=== PATIENT | male | born 1985 | race African-American/Black ===

== ENCOUNTER 2018-06-28 10:44 | Emergency (ER) | payer SELFPAY ==
[2018-06-28 10:58] VITALS: BP 125/68; PULSE 70; TEMP 99; BMI 23.7
[2018-06-28 11:16] LABS: URINE APPEARANCE CLEAR; URINE BILIRUBIN NEGATIVE (<2.0 mg/dL); URINE COLOR YELLOW; URINE GLUCOSE (UA) NEGATIVE (NEGATIVE); URINE KETONE NEGATIVE (NEGATIVE); URINE LEUK ESTERASE NEGATIVE (NEGATIVE); URINE NITRITE NEGATIVE (NEGATIVE)
[2018-06-28 11:21] LABS: URINE PROTEIN 1+ (NEGATIVE)
[2018-06-28] MEDS ORDERED: AZITHROMYCIN 1 GM PACKET PO ONE (11:28)
[2018-06-28] MEDS ORDERED: AZITHROMYCIN 250 MG TABLET ONE (11:31)
--- NOTE | 2018-06-28 11:32 | PDOC ---
History of Present Illness - General Chief Complaint: Urinary Problem Stated Complaint: UTI Time Seen by Provider: 06/28/18 11:00 History Source: Patient Exam Limitations: No Limitations - History of Present Illness Travel History: No Initial Comments: 06/28/18 11:48 Patient came for evaluation of burning with urination for the past 2 days. Denies drainage, testicular swelling or. Denies lesions or painful masses to his penis or testicles. Has never had sexually transmitted disease. Denies knowledge of partner with symptoms. Timing/Duration: reports: constant, getting worse Quality: reports: mild, burning Pain Radiation: reports: no radiation Activities at Onset: reports: none Aggravating Factors: improves with: None Past History - Travel Traveled outside of the country in the last 30 days: No Close contact w/someone who was outside of country & ill: No - Past Medical History Allergies/Adverse Reactions: Allergies Allergy/AdvReac Type Severity Reaction Status Date / Time shellfish derived Allergy Verified 06/28/18 10:53 Home Medications: Ambulatory Orders Methocarbamol [Robaxin -] 500 mg PO TID #21 tablet 05/18/18 Asthma: Yes COPD: No - Immunization History Immunization Up to Date: No - Suicide/Smoking/Psychosocial Hx Smoking History: Never smoked Have you smoked in the past 12 months: No Number of Cigarettes Smoked Daily: 20 Information on smoking cessation initiated: No 'Breaking Loose' booklet given: 01/17/14 Hx Alcohol Use: No Drug/Substance Use Hx: No Substance Use Type: Alcohol, Marijuana Review of Systems - Review of Systems Able to Perform ROS?: Yes Is the patient limited Jamaican proficient: Yes Constitutional: Yes: Symptoms Reported, See HPI. No: Malaise HEENTM: No: Symptoms Reported : Yes: Symptoms Reported, See HPI, Burning, Dysuria. No: Discharge, Frequency , Flank Pain, Urgency Integumentary: Yes: See HPI. No: Symptoms Reported All Other Systems: Reviewed and Negative *Physical Exam - Vital Signs Last Vital Signs Temp Pulse Resp BP Pulse Ox 99.0 F 70 18 125/68 100 06/28/18 10:54 06/28/18 10:54 06/28/18 10:54 06/28/18 10:54 06/28/18 10:54 - Physical Exam General Appearance: Yes: Nourished, Appropriately Dressed, Apparent Distress HEENT: positive: EOMI, CADEN, TMs Normal Neck: positive: Tender, Supple Respiratory/Chest: positive: Lungs Clear. negative: Chest Tender Gastrointestinal/Abdominal: positive: Soft. negative: Tender Male Genitalia: positive: normal genitalia. negative: discharge, testicular tenderness, testicular mass, epididymus tender Musculoskeletal: positive: Normal Inspection Extremity: positive: Normal Capillary Refill, Normal Inspection. negative: Normal Range of Motion Integumentary: positive: Normal Color, Dry, Ecchymosis, Bruising Neurologic: positive: sorter operator II-XII NML intact, Fully Oriented, Alert, Normal Mood/ Affect, Normal Response, Motor Strength 03/22 ED Treatment Course - ADDITIONAL ORDERS Additional order review: Laboratory Results 06/28/18 11:00 Urine Color Yellow Urine Appearance Clear Urine pH 6.0 Ur Specific [place] 1.026 Urine Protein 1+ H Urine Glucose (UA) Negative Urine Ketones Negative Urine Blood Negative Urine Nitrite Negative Urine Bilirubin Negative Urine Urobilinogen 2.0 Ur Leukocyte Esterase Negative Progress Note - Progress Note Progress Note: Possible STD, treated with 250 mg of Rocephin IM for gonorrhea, and 1 g of by mouth Zithromax for chlamydia with no reaction after 30 minutes observation. Patient understands will need to call in 3-7 days for reports of syphilis, gonorrhea and chlamydia testing and follow-up with PMD as well as all contact sexual contact if any positive results obtained. *DC/Admit/Observation/Transfer Diagnosis at time of Disposition: Dysuria - Discharge Dispostion Disposition: HOME Condition at time of disposition: Stable Decision to Admit order: No - Referrals - Patient Instructions Printed Discharge Instructions: DI for Dysuria -- Adult Additional Instructions: You been treated today with azithromycin 1 g by mouth for treatment of presumed chlamydia You have been treated with Rocephin 250 mg injection for treatment of presumned gonorrhea The syphilis test, gonorrhea and chlamydia testing will not be completed for the next few days. You may call [phone] and leave message for return phone call with lab results. Be sure to be clear with your name, birthdate, and phone number Always use condoms with the partners Followup with [facility] or PMD in one week for reevaluation and retesting. - Post Discharge Activity
[2018-06-28 11:35] LABS: URINE MUCUS RARE
== END 2018-06-28 12:25 | disposition home or self-care (01) ==
LOC: JER 10:44 → JERFT 10:44
DX: R30.0 Dysuria (principal); J45.909 Unspecified asthma, uncomplicated
CPT/HCPCS: 36415; 81003; 81015; 86593; 87491; 87591; 99281-25

== ENCOUNTER 2018-10-12 13:29 | Emergency (ER) | payer SELFPAY ==
[2018-10-12 13:40] VITALS: BP 146/86; PULSE 80; TEMP 98.2; BMI 24.6
[2018-10-12] MEDS ORDERED: IBUPROFEN 400 MG TABLET (FP) PO ONE ×2 (14:02→14:29)
[2018-10-12] MEDS ORDERED: DIPHTH,PERTUSS(ACELL),TET 0.5 ML DISP.SYRIN IM ONE (14:03)
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
[2018-10-12] MEDS ORDERED: ACETAMINOPHEN 325 MG TABLET (FP) PO ONE (16:35)
[2018-10-12] MEDS ORDERED: ACETAMINOPHEN 325 MG TABLET (FP) ONE (16:43)
[2018-10-12] MEDS ORDERED: metroNIDAZOLE 500 MG TABLET PO ONE (16:45)
--- NOTE | 2018-10-12 16:45 | CONSULT ---
Consult Consult Specialty:: Hand and microsurgery Reason for Consultation:: right hand injury - History Source History Provided By: Patient, Medical Record Limitations to Obtaining History: No Limitations - Alcohol/Substance Use Hx Alcohol Use: Yes - Smoking History Smoking history: Current every day smoker Have you smoked in the past 12 months: Yes Aproximately how many cigarettes per day: 20 Home Medications - Allergies Allergies/Adverse Reactions: Allergies Allergy/AdvReac Type Severity Reaction Status Date / Time shellfish derived Allergy Verified 10/12/18 13:37 - Home Medications Home Medications: Ambulatory Orders NK [No Known Home Medication] 10/12/18 Physical Exam Vital Signs: Vital Signs Temperature 98.2 F 10/12/18 13:37 Pulse Rate 80 10/12/18 13:37 Respiratory Rate 18 10/12/18 13:37 Blood Pressure 146/86 10/12/18 13:37 O2 Sat by Pulse Oximetry (%) 98 10/12/18 13:37
[2018-10-13] MEDS ORDERED: levoFLOXacin 750 MG TABLET PO ONE (17:02)
== END 2018-10-12 17:40 | disposition home or self-care (01) ==
LOC: JER 13:29
PROC: 3E0234Z Introduction of Serum, Toxoid and Vaccine into Muscle, Percutaneous Approach (ICD-10-PCS; principal; 2018-10-12)
PROC: 2W3JX1Z Immobilization of Right Finger using Splint (ICD-10-PCS; 2018-10-12)
DX: S62.664A Nondisplaced fracture of distal phalanx of right ring finger, initial encounter for closed fracture (principal); S61.250A Open bite of right index finger without damage to nail, initial encounter; Y04.1XXA Assault by human bite, initial encounter; Y93.89 Activity, other specified; Y92.89 Other specified places as the place of occurrence of the external cause; Y99.8 Other external cause status
CPT/HCPCS: 73110-TC-RT-FY; 73130-TC-RT-FY; 90715; 99281-25

== ENCOUNTER 2020-10-16 00:20 | Emergency (ER) | payer OTHER ==
[2020-10-16 00:30] VITALS: BP 119/72; PULSE 76; TEMP 98.6; BMI 22.4
[2020-10-16 02:44] LABS: HEMOGLOBIN 14.5 GM/dL (11.7-16.9); WHITE BLOOD COUNT 5.3 K/mm3 (4.0-10.0)
[2020-10-16 02:46] LABS: HEMATOCRIT 42.7 % (35.4-49); MCHC 33.9 g/dl (32.0-35.9); MEAN CELL VOLUME 97.4 fl (80-96); MEAN PLT VOLUME 8.6 fl (7.5-11.1); PLATELET COUNT 177 K/MM3 (134-434); RBC 4.39 M/mm3 (4.00-5.60)
[2020-10-16] MEDS ORDERED: IBUPROFEN 600 MG TABLET (FP) PO ONE (02:52)
[2020-10-16] MEDS ORDERED: METHOCARBAMOL 500 MG TABLET PO ONE (02:52)
[2020-10-16] MEDS ORDERED: LIDOCAINE 5% TOPICAL PATCH TP ONE (03:22)
[2020-10-16 03:36] LABS: POTASSIUM 3.7 mmol/L (3.5-5.1)
[2020-10-16 03:38] LABS: CALCIUM 8.7 mg/dL (8.5-10.1)
[2020-10-16 03:39] LABS: ALBUMIN 3.8 g/dl (3.4-5.0); BLOOD UREA NITROGEN 10.4 mg/dL (7-18)
[2020-10-16 03:42] LABS: CREATININE 0.8 mg/dL (0.55-1.3)
[2020-10-16 03:44] LABS: BILIRUBIN,TOTAL 0.3 mg/dL (0.2-1); TOT PROT 7.1 g/dl (6.4-8.2)
[2020-10-16 08:33] LABS: HIV INTERPRETATION NEGATIVE (NEGATIVE)
[2020-10-16] MEDS ORDERED: LIDOCAINE PATCH REMOVAL MC SCH (22:00)
== END 2020-10-16 03:29 | disposition home or self-care (01) ==
LOC: JER 00:20
DX: S39.012A Strain of muscle, fascia and tendon of lower back, initial encounter (principal)
CPT/HCPCS: 36415; 70450-TC; 72125-TC; 72133-TC; 80053; 85027; 86850; 86900; 86901; 87389; 99285-25; Q9967

== ENCOUNTER 2021-10-26 21:35 | Emergency (ER) | payer OTHER ==
[2021-10-26 21:41] VITALS: BMI 23.1
[2021-10-26] MEDS ORDERED: LACTATED RINGERS SOLUTION 1000 ML INFUS.BAG IV ONE (22:11)
[2021-10-26] MEDS ORDERED: ACETAMINOPHEN 1000 MG/100 ML VIAL IVPB ONE (22:11)
[2021-10-26] MEDS ORDERED: ACETAMINOPHEN INJECTION 100 ML IVPB ONE (22:42)
[2021-10-26 22:43] LABS: HEMOGLOBIN 14.5 GM/dL (11.7-16.9); LYMPH % 34.7 % (8-40); MCH 31.7 pg (25.7-33.7); MCHC 33.7 g/dl (32.0-35.9); MEAN CELL VOLUME 94.2 fl (80-96); MEAN PLT VOLUME 7.5 fl (7.5-11.1); MONO % 15.2 % (3.8-10.2); NEUT % 48.1 % (42.8-82.8); PLATELET COUNT 145 10^3/uL (134-434); RBC 4.56 M/mm3 (4.00-5.60); RDW 14.3 % (11.9-15.9); WHITE BLOOD COUNT 2.7 K/mm3 (4.0-10.0)
[2021-10-26] MEDS ORDERED: KETOROLAC TROMETHAMINE 15 MG/ML VIAL IVPUSH ONE (22:43)
[2021-10-26] MEDS ORDERED: KETOROLAC TROMETHAMINE 30 MG/1 ML VIAL ONE (22:52)
[2021-10-26 23:01] LABS: BLOOD UREA NITROGEN 13.5 mg/dL (7-18); CALCIUM 8.6 mg/dL (8.5-10.1)
[2021-10-26 23:02] LABS: ALBUMIN 3.8 g/dl (3.4-5.0)
[2021-10-26 23:06] LABS: BILIRUBIN,TOTAL 0.2 mg/dL (0.2-1); TOT PROT 7.2 g/dl (6.4-8.2)
[2021-10-26 23:41] LABS: PH,URINE 7.5 (5.0-8.0); URINE APPEARANCE CLEAR; URINE BILIRUBIN NEGATIVE (NEGATIVE); URINE COLOR YELLOW; URINE GLUCOSE (UA) NEGATIVE (NEGATIVE); URINE KETONE NEGATIVE (NEGATIVE); URINE LEUK ESTERASE NEGATIVE (NEGATIVE); URINE NITRITE NEGATIVE (NEGATIVE); URINE PROTEIN NEGATIVE (NEGATIVE)
[2021-10-27] MEDS ORDERED: LACTATED RINGERS SOLUTION 1000 ML INFUS.BAG IV ONE (00:02)
[2021-10-27] MEDS ORDERED: ALBUTEROL SO4 2.5/IPRATROPIUM 0.5 INH SOL 3 ML VIAL.NEB. NEB ONE ×2 (00:03→00:46)
[2021-10-27 01:16] LABS: HIV INTERPRETATION NEGATIVE (NEGATIVE)
[2021-10-27] MEDS ORDERED: METHOCARBAMOL 500 MG TABLET PO ONE (01:23)
[2021-10-27] MEDS ORDERED: METHOCARBAMOL 500 MG TABLET ONE (01:33)
[2021-10-27 02:05] VITALS: PULSE 68; TEMP 98
[2021-10-27] MEDS ORDERED: CASIRIVIMAB/IMDEVIMAB 10 ML in SODIUM CHLORIDE 100 ML IVPB ONE (02:18)
[2021-10-27] MEDS ORDERED: KETOROLAC TROMETHAMINE 15 MG/ML VIAL IVPUSH ONE (03:53)
[2021-10-27] MEDS ORDERED: KETOROLAC TROMETHAMINE 30 MG/1 ML VIAL ONE (04:10)
[2021-10-27 05:08] VITALS: BP 146/75
== END 2021-10-27 05:33 | disposition home or self-care (01) ==
LOC: JER 21:35
PROC: 3E033GC Introduction of Other Therapeutic Substance into Peripheral Vein, Percutaneous Approach (ICD-10-PCS; principal; 2021-10-26)
PROC: 3E0F7GC Introduction of Other Therapeutic Substance into Respiratory Tract, Via Natural or Artificial Opening (ICD-10-PCS; 2021-10-26)
DX: U07.1 COVID-19 (principal)
CPT/HCPCS: 36415; 71045-TC-FY; 80053; 81003; 85025; 87086; 87389; 87491; 87591; 87661; 87804; 87807; 99285-25; C9803; J0131; Q0240; U0003; U0005

== ENCOUNTER 2021-11-19 02:58 | Emergency (ER) | payer OTHER ==
[2021-11-19 03:26] VITALS: PULSE 86; TEMP 98.1; BMI 22.9
[2021-11-19] MEDS ORDERED: KETOROLAC TROMETHAMINE 15 MG/ML VIAL IVPUSH ONE (04:31)
[2021-11-19] MEDS ORDERED: SODIUM CHLORIDE 0.9% 500 ML INFUS.BAG IV ONE (04:31)
[2021-11-19] MEDS ORDERED: ACETAMINOPHEN 1000 MG/100 ML BAG IVPB ONE (04:31)
[2021-11-19] MEDS ORDERED: ACETAMINOPHEN INJECTION 100 ML IVPB ONE (05:01)
[2021-11-19] MEDS ORDERED: KETOROLAC TROMETHAMINE 15 MG/ML VIAL ONE (05:01)
[2021-11-19 05:39] LABS: BASO % 0.7 % (0-2.0); EOS % 0.9 % (0-4.5); HEMATOCRIT 45.4 % (35.4-49); HEMOGLOBIN 14.7 GM/dL (11.7-16.9); LYMPH % 21.6 % (8-40); MCHC 32.4 g/dl (32.0-35.9); MEAN CELL VOLUME 95.8 fl (80-96); MEAN PLT VOLUME 8.1 fl (7.5-11.1); MONO % 8.7 % (3.8-10.2); NEUT % 68.1 % (42.8-82.8); PLATELET COUNT 179 10^3/uL (134-434); RBC 4.73 M/mm3 (4.00-5.60); RDW 14.5 % (11.9-15.9)
[2021-11-19 05:40] LABS: URINE APPEARANCE CLEAR; URINE BILIRUBIN NEGATIVE (NEGATIVE); URINE COLOR YELLOW; URINE GLUCOSE (UA) NEGATIVE (NEGATIVE); URINE KETONE NEGATIVE (NEGATIVE); URINE LEUK ESTERASE NEGATIVE (NEGATIVE); URINE NITRITE NEGATIVE (NEGATIVE); URINE PROTEIN NEGATIVE (NEGATIVE)
[2021-11-19 05:59] LABS: CHLORIDE 107 mmol/L (98-107); SODIUM 141 mmol/L (136-145)
[2021-11-19 06:01] LABS: ANION GAP 6 MMOL/L (8-16); BLOOD UREA NITROGEN 9.8 mg/dL (7-18); CALCIUM 9.5 mg/dL (8.5-10.1); CO2 28 mmol/L (21-32); MAGNESIUM 2.5 mg/dL (1.8-2.4)
[2021-11-19 06:02] LABS: GLUCOSE,RANDOM 99 mg/dL (74-106)
[2021-11-19 06:04] LABS: CREATININE 0.8 mg/dL (0.55-1.3); SGOT/AST 29 U/L (15-37)
[2021-11-19 06:05] LABS: SGPT/ALT 39 U/L (13-61)
[2021-11-19 06:06] LABS: BILIRUBIN,TOTAL 0.6 mg/dL (0.2-1); TOT PROT 7.9 g/dl (6.4-8.2)
[2021-11-19 06:07] LABS: ALK PHOS 71 U/L (45-117)
[2021-11-19 06:41] LABS: ALBUMIN 4.5 g/dl (3.4-5.0)
[2021-11-19 07:34] VITALS: BP 135/76
== END 2021-11-19 07:54 | disposition home or self-care (01) ==
LOC: JER 02:58
PROC: 3E033GC Introduction of Other Therapeutic Substance into Peripheral Vein, Percutaneous Approach (ICD-10-PCS; principal; 2021-11-19)
DX: M79.604 Pain in right leg (principal); M79.605 Pain in left leg
CPT/HCPCS: 36415; 80053; 81003; 82550; 82553; 82607; 83735; 84443; 85025; 99284-25; J0131

== ENCOUNTER 2021-11-20 00:22 | Emergency (ER) | payer OTHER ==
[2021-11-20 00:26] VITALS: BP 129/82; PULSE 74; TEMP 97.5; BMI 23.7
[2021-11-20] MEDS ORDERED: ACETAMINOPHEN 325 MG TABLET (FP) PO ONE (01:04)
[2021-11-20] MEDS ORDERED: KETOROLAC TROMETHAMINE 30 MG/1 ML VIAL IM ONE (01:04)
[2021-11-20] MEDS ORDERED: ACETAMINOPHEN 325 MG TABLET (FP) ONE (01:16)
[2021-11-20] MEDS ORDERED: KETOROLAC TROMETHAMINE 30 MG/1 ML VIAL ONE (01:16)
== END 2021-11-20 03:00 | disposition home or self-care (01) ==
LOC: JER 00:22
PROC: 3E0233Z Introduction of Anti-inflammatory into Muscle, Percutaneous Approach (ICD-10-PCS; principal; 2021-11-20)
DX: F41.9 Anxiety disorder, unspecified (principal)
CPT/HCPCS: 99284-25

== ENCOUNTER 2021-12-02 02:12 | Inpatient (IN) | payer OTHER ==
[2021-12-02] MEDS ORDERED: MAGNESIUM CITRATE 300 ML BOTTLE PO PRN (03:40)
[2021-12-02] MEDS ORDERED: MENTHOL/PHENOL 1 EACH UD MM PRN (03:40)
[2021-12-02] MEDS ORDERED: NICOTINE 10 MG CARTRIDGE (INHALER) IH PRN (03:40)
[2021-12-02] MEDS ORDERED: ACETAMINOPHEN 325 MG TABLET (FP) PO PRN ×2 (03:40)
[2021-12-02] MEDS ORDERED: MAGNESIUM HYDROX 2400MG/30ML ORAL SUSPENSION 30 ML CUP PO PRN (03:40)
[2021-12-02] MEDS ORDERED: ONDANSETRON *ODT* 4 MG TABLET SL PRN (03:40)
[2021-12-02] MEDS ORDERED: MAG HYDROX/AL HYDROX/SIMETH 30 ML UNIT-DOSE CUP PO PRN (03:40)
[2021-12-02] MEDS ORDERED: IBUPROFEN 400 MG TABLET (FP) PO PRN (03:40)
[2021-12-02] MEDS ORDERED: BISMUTH SUBSALICYLATE 524 MG/30 ML PO PRN (03:40)
[2021-12-02] MEDS ORDERED: METHOCARBAMOL 500 MG TABLET PO PRN (03:40)
[2021-12-02 09:09] VITALS: BMI 23.1
[2021-12-02] MEDS: PRENATAL VITAMINS W/ FOLIC ACID TABLET (FP) PO SCH (13:30)
[2021-12-02] MEDS: hydrOXYzine PAMOATE 25 MG CAPSULE (FP) PO SCH ×5 (13:30→22:45)
[2021-12-02] MEDS ORDERED: ALBUTEROL SO4 HFA INHALER IH PRN (13:30)
[2021-12-02] MEDS ORDERED: MELATONIN 5 MG TABLETS PO SCH (22:00)
[2021-12-02] MEDS ORDERED: THIAMINE HCL 100 MG TABLET (FP) PO SCH (22:00)
[2021-12-03] MEDS: hydrOXYzine PAMOATE 25 MG CAPSULE (FP) PO SCH ×3 (06:26→13:12)
[2021-12-03 09:56] VITALS: TEMP 98.2
[2021-12-03] MEDS: PRENATAL VITAMINS W/ FOLIC ACID TABLET (FP) PO SCH (10:29)
[2021-12-03 14:21] VITALS: BP 141/83; PULSE 59
[2021-12-03] MEDS ORDERED: QUEtiapine FUMARATE 50 MG TABLET PO SCH (22:00)
== END 2021-12-03 16:42 | disposition home or self-care (01) | DRG 775 ==
LOC: YASAS 02:12 → Y3N 13:08 → UNDOADMIN 13:08 → UNDODISIN 12-03 16:42
PROVIDERS: ADMIT Allergy & Immunology; ATTEND Allergy & Immunology
PROC: HZ2ZZZZ Detoxification Services for Substance Abuse Treatment (ICD-10-PCS; principal; 2021-12-02)
DX: F10.20 Alcohol dependence, uncomplicated (principal); F10.220 Alcohol dependence with intoxication, uncomplicated; F12.20 Cannabis dependence, uncomplicated; F17.210 Nicotine dependence, cigarettes, uncomplicated; F19.282 Other psychoactive substance dependence with psychoactive substance-induced sleep disorder; F19.24 Other psychoactive substance dependence with psychoactive substance-induced mood disorder; F41.8 Other specified anxiety disorders; F32.A Depression, unspecified; Z91.410 Personal history of adult physical and sexual abuse; Z56.0 Unemployment, unspecified; Z59.00 Homelessness unspecified
CPT/HCPCS: 93005; 93010; C9803; U0003; U0005

== ENCOUNTER 2021-12-15 04:13 | Emergency (ER) | payer OTHER ==
[2021-12-15 05:16] VITALS: TEMP 97.9; BMI 24.5
[2021-12-15] MEDS ORDERED: LIDOCAINE 5% TOPICAL PATCH TP ONE (05:48)
[2021-12-15] MEDS ORDERED: KETOROLAC TROMETHAMINE 30 MG/1 ML VIAL IM ONE (05:48)
[2021-12-15] MEDS ORDERED: KETOROLAC TROMETHAMINE 30 MG/1 ML VIAL ONE (05:56)
[2021-12-15] MEDS ORDERED: LIDOCAINE 5% TOPICAL PATCH ONE (05:56)
[2021-12-15 08:36] VITALS: BP 120/70; PULSE 69
[2021-12-15] MEDS ORDERED: LIDOCAINE PATCH REMOVAL MC ONE (18:00)
== END 2021-12-15 09:02 | disposition home or self-care (01) ==
LOC: JER 04:13
PROC: 3E0233Z Introduction of Anti-inflammatory into Muscle, Percutaneous Approach (ICD-10-PCS; principal; 2021-12-15)
DX: M54.50 Low back pain, unspecified (principal)
CPT/HCPCS: 71045-TC-FY; 71101-TC-RT-FY; 99284-25

== ENCOUNTER 2022-01-03 03:13 | Inpatient (IN) | payer OTHER ==
[2022-01-03 03:32] VITALS: BMI 25.0
[2022-01-03] MEDS ORDERED: MENTHOL/PHENOL 1 EACH UD MM PRN (03:48)
[2022-01-03] MEDS ORDERED: ONDANSETRON *ODT* 4 MG TABLET SL PRN (03:48)
[2022-01-03] MEDS ORDERED: LOPERAMIDE HCL 2 MG CAPSULE PO PRN (03:48)
[2022-01-03] MEDS ORDERED: BISMUTH SUBSALICYLATE 524 MG/30 ML PO PRN (03:48)
[2022-01-03] MEDS ORDERED: MAG HYDROX/AL HYDROX/SIMETH 30 ML UNIT-DOSE CUP PO PRN (03:48)
[2022-01-03] MEDS ORDERED: guaiFENesin 200 MG/10 ML 10 ML UNIT-DOSE CUPS PO PRN (03:48)
[2022-01-03] MEDS ORDERED: MAGNESIUM CITRATE 300 ML BOTTLE PO PRN (03:48)
[2022-01-03] MEDS ORDERED: NICOTINE POLACRILEX 2 MG GUM BUC PRN (03:48)
[2022-01-03] MEDS ORDERED: ACETAMINOPHEN 325 MG TABLET (FP) PO PRN ×2 (03:48)
[2022-01-03] MEDS ORDERED: MAGNESIUM HYDROX 2400MG/30ML ORAL SUSPENSION 30 ML CUP PO PRN (03:48)
[2022-01-03] MEDS ORDERED: hydrOXYzine PAMOATE 25 MG CAPSULE (FP) PO PRN (03:48)
[2022-01-03] MEDS ORDERED: P-EPHED 60MG/TRIPROLIDI 2.5MG TABLET PO PRN (03:48)
[2022-01-03] MEDS ORDERED: DICYCLOMINE HCL 10 MG CAPSULE PO PRN (03:48)
[2022-01-03] MEDS ORDERED: diazePAM 5 MG TABLET PO PRN (10:25)
[2022-01-03] MEDS: NICOTINE 21 MG/24 HOURS TOPICAL PATCH TD SCH (12:18)
[2022-01-03] MEDS: PRENATAL VITAMINS W/ FOLIC ACID TABLET (FP) PO SCH (12:19)
[2022-01-03] MEDS: diazePAM 5 MG TABLET PO SCH ×3 (12:19→22:20)
[2022-01-03] MEDS: THIAMINE HCL 100 MG TABLET (FP) PO SCH (22:20)
[2022-01-03] MEDS: MELATONIN 5 MG TABLETS PO SCH (22:20)
[2022-01-03] MEDS: METHOCARBAMOL 500 MG TABLET PO PRN (22:22)
[2022-01-04] MEDS: diazePAM 5 MG TABLET PO SCH ×4 (05:20→22:07)
[2022-01-04] MEDS: NICOTINE 21 MG/24 HOURS TOPICAL PATCH TD SCH (10:42)
[2022-01-04] MEDS: PRENATAL VITAMINS W/ FOLIC ACID TABLET (FP) PO SCH (10:42)
[2022-01-04 12:02] LABS: HEMATOCRIT 44.4 % (35.4-49); HEMOGLOBIN 14.4 GM/dL (11.7-16.9); MCH 31.2 pg (25.7-33.7); MCHC 32.5 g/dl (32.0-35.9); MEAN CELL VOLUME 96.1 fl (80-96); MEAN PLT VOLUME 8.6 fl (7.5-11.1); PLATELET COUNT 177 10^3/uL (134-434); RBC 4.62 M/mm3 (4.00-5.60); RDW 14.4 % (11.9-15.9); WHITE BLOOD COUNT 3.7 K/mm3 (4.0-10.0)
[2022-01-04 13:53] LABS: BLOOD UREA NITROGEN 13.6 mg/dL (7-18); CALCIUM 9.1 mg/dL (8.5-10.1)
[2022-01-04 13:54] LABS: ALBUMIN 3.7 g/dl (3.4-5.0)
[2022-01-04 13:55] LABS: BILIRUBIN,TOTAL 0.4 mg/dL (0.2-1); TOT PROT 6.6 g/dl (6.4-8.2)
[2022-01-04 13:56] LABS: CREATININE 0.9 mg/dL (0.55-1.3)
[2022-01-04] MEDS: METHOCARBAMOL 500 MG TABLET PO PRN (15:24)
[2022-01-04] MEDS: IBUPROFEN 400 MG TABLET (FP) PO PRN (15:24)
[2022-01-04] MEDS: MELATONIN 5 MG TABLETS PO SCH (22:06)
[2022-01-04] MEDS: THIAMINE HCL 100 MG TABLET (FP) PO SCH (22:07)
[2022-01-05] MEDS: diazePAM 5 MG TABLET PO SCH ×3 (05:12→23:01)
[2022-01-05] MEDS: NICOTINE 21 MG/24 HOURS TOPICAL PATCH TD SCH (10:12)
[2022-01-05] MEDS: PRENATAL VITAMINS W/ FOLIC ACID TABLET (FP) PO SCH (10:12)
[2022-01-05] MEDS: HYDROCORTISONE 2.5% TOPICAL CREAM 30 GM TUBE TP SCH ×2 (10:42→23:10)
[2022-01-05] MEDS: SELENIUM SULFIDE 2.5% LOTION 4 OZ. TP SCH (10:43)
[2022-01-05] MEDS ORDERED: ALBUTEROL SO4 HFA INHALER IH PRN (11:21)
[2022-01-05 14:07] LABS: SARS-CoV-2 NAA Not Detected (Not Detected)
[2022-01-05] MEDS: METHOCARBAMOL 500 MG TABLET PO PRN (17:54)
[2022-01-05] MEDS: IBUPROFEN 400 MG TABLET (FP) PO PRN (17:54)
[2022-01-05] MEDS: MELATONIN 5 MG TABLETS PO SCH (21:05)
[2022-01-05] MEDS: THIAMINE HCL 100 MG TABLET (FP) PO SCH (21:05)
[2022-01-06] MEDS: diazePAM 5 MG TABLET PO SCH ×2 (05:50→18:28)
[2022-01-06] MEDS: PRENATAL VITAMINS W/ FOLIC ACID TABLET (FP) PO SCH (11:11)
[2022-01-06] MEDS: NICOTINE 21 MG/24 HOURS TOPICAL PATCH TD SCH (11:11)
[2022-01-06] MEDS: HYDROCORTISONE 2.5% TOPICAL CREAM 30 GM TUBE TP SCH ×2 (11:11→22:39)
[2022-01-06] MEDS: SELENIUM SULFIDE 2.5% LOTION 4 OZ. TP SCH (11:12)
[2022-01-06] MEDS: THIAMINE HCL 100 MG TABLET (FP) PO SCH (22:39)
[2022-01-06] MEDS: MELATONIN 5 MG TABLETS PO SCH (22:39)
[2022-01-07] MEDS ORDERED: diazePAM 5 MG TABLET PO ONE (06:00)
[2022-01-07 08:58] VITALS: BP 106/53; PULSE 50; TEMP 96.9
[2022-01-07] MEDS: PRENATAL VITAMINS W/ FOLIC ACID TABLET (FP) PO SCH (10:46)
[2022-01-07] MEDS: HYDROCORTISONE 2.5% TOPICAL CREAM 30 GM TUBE TP SCH (10:46)
[2022-01-07] MEDS: SELENIUM SULFIDE 2.5% LOTION 4 OZ. TP SCH (10:47)
[2022-01-07] MEDS: NICOTINE 21 MG/24 HOURS TOPICAL PATCH TD SCH (10:47)
== END 2022-01-07 11:14 | disposition home or self-care (01) | DRG 775 ==
LOC: YASAS 03:13 → Y3N 08:17
PROVIDERS: ADMIT Allergy & Immunology; ATTEND Allergy & Immunology
PROC: HZ2ZZZZ Detoxification Services for Substance Abuse Treatment (ICD-10-PCS; principal; 2022-01-03)
DX: F10.230 Alcohol dependence with withdrawal, uncomplicated (principal); F12.20 Cannabis dependence, uncomplicated; F17.210 Nicotine dependence, cigarettes, uncomplicated; F19.24 Other psychoactive substance dependence with psychoactive substance-induced mood disorder; G47.00 Insomnia, unspecified; J45.909 Unspecified asthma, uncomplicated; Z56.0 Unemployment, unspecified; Z59.00 Homelessness unspecified
CPT/HCPCS: 36415; 80053; 85027; 86780; C9803; U0003; U0005